=== PATIENT | male | born 1980 | race Caucasian/White ===

== ENCOUNTER 2023-08-18 17:22 | Emergency (ER) | payer OTHER, BC, SELFPAY ==
[2023-08-18 17:24] VITALS: BP 163/90; PULSE 67; RESP 16; TEMP 36.5; O2SAT 96; BMI 24.3
--- NOTE | 2023-08-18 17:33 | ED.GENADULT ---
HPI - General Adult General Chief complaint: Head Injury/Pain Stated complaint: concussion symptoms Time Seen by Provider: 08/18/23 17:33 History of Present Illness HPI narrative: had concussion at end of May . spoke to nurse last week and told to go to ED if symptoms aren't better this week. dizzy, ringing in ears , only works a few hours light duty and comes home exhausted . can work outside and do yardwork outside without problems but symptoms flare up indoors. tried to go to [facility] and too busy so left. today felt like he was going to pass out from the heat. did an ekg at [facility] but pt does not know what it said. 43-year-old man presenting to the emergency department with concern of persistent symptoms that have been thought to be related to concussion. Sustained a concussion at work where he was I believe unloading his truck, describes an axial load injury that required repair of the skin at the apex of the scalp with negative CT done at that time. Unclear if neck imaging was done. Continues to have a stiff neck but not complaining of significant pain. Headache will continue to escalate over the course of the day. Does have interrupted sleep or if he does wake up through the hard to get back to sleep. He chronically feels like he is hung over. Rarely drinks alcohol and does not smoke. Has had transition to light duty work but has no exertional tolerance. He is not sure if it is his work environment which happens to be indoors. It is really a waxing and waning course for him in symptoms. Spouse is concerned also is sometimes he just can not even bear to have a conversation. Other days hell have a good weekend working outside. He is not sure what his triggers really are at this point. Today had to lift something not terribly heavy but just felt like he was about to pass out; admittedly a little warmer. Otherwise without fever or cough or cold symptoms. No known cardiovascular problems. He did present initially to [facility] but due to long wait ultimately was not seen. Did have an EKG done during triage it sounds like. Is not exactly her short of breath but just fatigued. Recently had a checkup with primary care and did have lab work done which was unremarkable. Did present to an emergency department in the interim since initial injury and he says understandably no imaging was done. He really has trouble with the I exercises that he has been recommended to do by physical therapy. He has been attending concussion specific physical therapy. He exercises in particular make him feel much worse much worse headache. Incidentally headache is typically in the upper posterior head. He has also developed a tinnitus. Does worse with certain movements; maybe a curving road while in the car. Has been now diagnosed with TBI and referred to [facility] but he says he can not get in there until October. I ask what he feels he would like to get out of this visit as we discussed options; he is wondering if an MRI might be warranted at this point. They are just looking for more answers and help with symptoms. Disinclined to treatment for his headache at the moment; I think recognizes the temporality. Related Data Previous Rx's ?Medication ?Instructions ?Recorded amitriptyline 10 mg tablet 10 mg PO QHS #30 tabs 08/18/23 Allergies Allergy/AdvReac Type Severity Reaction Status Date / Time No Known Drug Allergies Allergy Verified 08/18/23 17:30 Review of Systems Status of ROS: Reports: 6 or more systems reviewed and unremarkable except as noted in History and below Exam Narrative: Exam Narrative: Pleasant. Tall. Animated. Pleasantly talkative. Heavily tattooed forearms. Cranial nerves 2-12 intact. Pupils are equal and briskly reactive. Moving all extremities without difficulty, fluidly. Extraocular movements appear to be intact. Is breathing easily. Heart in regular rate and rhythm. Const: Vital Signs, click to edit/add: Vital Signs - 24 hr 08/18/23 17:24 Temperature 97.7 F Pulse Rate [Pulse Oximeter] 67 Respiratory Rate 16 Blood Pressure [Ri ght Upper Arm] 163/90 H Pulse Oximetry 96 Oxygen Delivery Me thod Room Air Documenting provider has reviewed patient's vital signs: yes Course Vital Signs Vital signs: Initial Vital Signs Temperature 97.7 F 08/18/23 17:24 Temperature Source Temporal Artery Scan 08/18/23 17:24 Pulse Rate 67 08/18/23 17:24 Respiratory Rate 16 08/18/23 17:24 Blood Pressure 163/90 H 08/18/23 17:24 Blood Pressure Mean 114 H 08/18/23 17:24 Pulse Oximetry 96 08/18/23 17:24 Oxygen Delivery Method Room Air 08/18/23 17:24 Vital Signs Temperature 97.7 F 08/18/23 17:24 Pulse Rate 67 08/18/23 17:24 Respiratory Rate 16 08/18/23 17:24 Blood Pressure 163/90 H 08/18/23 17:24 Pulse Oximetry 96 08/18/23 17:24 Oxygen Delivery Method Room Air 08/18/23 17:24 Temperature 97.7 F 08/18/23 17:24 Pulse Rate 66 08/18/23 19:30 Respiratory Rate 16 08/18/23 19:30 Blood Pressure 140/84 H 08/18/23 19:30 Pulse Oximetry 96 08/18/23 19:30 Oxygen Delivery Method Room Air 08/18/23 19:30 Medical Decision Making MDM Narrative Medical decision making narrative: Does really seem to be struggling with post concussive syndrome. I am relieved to hear he will be seeing [facility]. Discussed unpredictable course. Spouse apparently has had concussions but she has never had symptoms to this degree. I do not think there is anything new here. He has also had recent labs so chemistries and hemoglobin presumably are normal and not an explanation for his fatigue. Did offer to discuss this case further with Neurology to get further recommendations. Discussed with Neurology and suggesting imaging. I may be actually able to get a basic brain MRI here today. Also asked further about potential medication and perhaps amitriptyline would be an option. MRI was done. Images reviewed. Radiology over-read noted to be WNL. Though trace mastoid effusion was noted. No erosions described. Discussed further potentially chronic nature of when he is experiencing and waxing and waning not necessarily unexpected. I do not think there is an underlying cardiopulmonary problem here. Probably does need to change work environment. Appears to do better outdoors but typical level exertion required outdoors might be difficult as well. See patient discharge plan for further discussion Discharge Plan Discharge Clinical Impression: Post concussion syndrome, Headache Patient Disposition: Home w/ Parent or Adult Condition: Stable Additional Instructions: Stay well-hydrated. Try to get quality and regular sleep. Maybe this amitriptyline will help. Consider scheduling a follow-up with your primary care provider for 10-14 days from now. Would also consider follow-up appointment with Neurology. [facility] is probably the largest group in the region and I believe they have some affiliation with [facility]. Prescriptions: New amitriptyline 10 mg tablet 10 mg PO QHS Qty: 30 2RF Follow Up/Referrals: Provider,Not a Local [Primary Care Provider] - Stand Alone Forms: [facility] Info Instructions
--- NOTE | 2023-08-18 18:18 | CRLHL7_ITS ---
For Patients: As a result of the Century Cures Act, medical imaging exams and procedure reports are released immediately into your electronic medical record. You may view this report before your referring provider. If you have questions, please contact your health care provider. CLINICAL HISTORY: Progressive postconcussive symptoms. TECHNIQUE: Multi-sequence, multiplanar MRI examination of the brain was performed. COMPARISON: None available. FINDINGS: There is no restricted diffusion in the brain to indicate the presence of acute ischemia. No intracranial hemorrhage, extra-axial collection, mass effect, or midline shift. Brain parenchymal signal, morphology, and volume are within normal limits. The ventricles are normal in size and morphology. The orbits are unremarkable. The paranasal sinuses are unremarkable. Trace left mastoid effusion. The calvarium is unremarkable. IMPRESSION: 1. No acute intracranial abnormality. Normal appearance of the brain parenchyma. 2. Trace left mastoid effusion. Dictated by Cedrick Dougherty MD @ 08/18/2023 7:23:33 PM (Electronically Signed)
[2023-08-18 19:30] VITALS: BP 140/84; PULSE 66; RESP 16; O2SAT 96
== END 2023-08-18 20:10 | disposition home or self-care (01) ==
PROVIDERS: Emergency Provider Family Medicine
DX: R51.9 Headache, unspecified (principal); F07.81 Postconcussional syndrome
CPT/HCPCS: 70551; 99283; 99284